=== PATIENT | male | born 1990 | race Two or more races ===

== ENCOUNTER 2024-07-04 21:17 | Emergency (ER) | payer SELFPAY ==
[2024-07-04 21:27] VITALS: BP 135/74
[2024-07-04 21:42] LABS: Hematocrit 43.5 % (39.0-52.0); Hemoglobin 14.9 g/dL (13.0-18.0); Mean Corp Hgb Conc. 34.3 g/dL (33.0-37.0); Mean Corpuscular Hgb 29.4 pg (27.0-31.0); Mean Platelet Volume 10.6 fL (7.4-10.4); Platelet Count 172 10^3/uL (130-400); Red Blood Cell Count 5.06 10^6/uL (4.70-6.10); Red Cell Dist. Width 13.1 % (11.5-14.5); White Blood Cell Count 5.5 10^3/uL (4.8-10.8)
[2024-07-04 22:00] LABS: ALT (SGPT) 46 U/L (0-50); AST (SGOT) 36 U/L (17-59); Albumin 4.4 g/dl (3.5-5.0); Alkaline Phosphatase 41 U/L (38-126); Blood Urea Nitrogen 20 mg/dl (9-20); Calcium 9.5 mg/dl (8.4-10.2); Carbon Dioxide 28 mmol/L (22-30); Chloride 102 mmol/L (98-107); Glucose 100 mg/dl (70-99); Potassium 4.5 mmol/L (3.5-5.1); Sodium 141 mmol/L (135-145); Total Bilirubin 0.4 mg/dl (0.2-1.3); eGFR > 60.00
[2024-07-04 22:48] VITALS: BMI 29.9
[2024-07-04 23:02] VITALS: BP 155/39
[2024-07-04 23:31] LABS: TSH Reflex To Free T4 2.22 uIU/ml (0.47-4.68)
--- NOTE | 2024-07-04 23:35 | ED.GENMED ---
History of Present Illness
General
Chief Complaint: Fatigue
Source: patient and records assistant (Language line - Ken[place] Creole)
Exam Limitations: none
Time Seen by Provider: 07/04/24 22:09
Nursing documentation reviewed up to this point in time: agreed with
History of Present Illness
History of Present Illness:
Patient to ED with complaint of fatigue. Symptoms started this AM. Denies fever/chill, recent illness. Brought self to ED for eval.
Past History
Past History
ED Past Medical History: None
ED Past Surgical History: None
Review of Systems
Review of Systems
Allergies reviewed?: Yes
All Other Systems: ROS reviewed and negative except as documented in HPI and ROS
Constitutional: Reports fatigue
EENT: Reports no symptoms
Respiratory: Reports no symptoms
Cardiac: Reports no symptoms
ABD/GI: Reports other (bloating after eating)
: Reports no symptoms
Musculoskeletal: Reports no symptoms
Skin: Reports no symptoms
Neurological: Reports no symptoms
Psychiatric: Reports no symptoms
Phy Exam
General Physical Exam
General Presentation: well appearing and no apparent distress
General age: appears stated age
General Skin: warm and dry
General Habitus: normal
General Mental: alert
General Hydration: appears well hydrated
Cardiovascular Exam
Cardiovascular Exam: regular rate/rhythm and no edema
Pulmonary Exam
Pulmonary Exam: lungs clear and no respiratory distress
Musculoskeletal Exam
Musculoskeletal Exam: full ROM and neuro vasc intact
Skin Exam
Skin Exam: normal color, warm/dry and no rash
Psychiatric Exam
Psychiatric Exam: normal mood/affect
Course
Orders/Labs/Results
Orders:
Orders
07/04/24 21:18
ECG [Electrocardiogram (*1)] Urgent
Reason for Study: Bradycardia / Tachycardia
EKG- Treatment ONCE
07/04/24 21:36
CMP [Comprehensive Metabolic Panel] Urgent
Complete Blood Count/No Diff Urgent
TSH Reflex To Free T4 Urgent
Comment: ADD ON
07/04/24 22:10
Add On- LAB Urgent
Tests Added?: TSH reflex free T4
Abnormal Lab Results
07/04/24
21:36
MPV 10.6 H fL
(7.4-10.4)
Glucose 100 H mg/dl
(70-99)
07/04/24 21:36
07/04/24 21:36
Vital Signs
Initial and Last Documented VS:
Initial Vital Signs
Temp Pulse Resp BP Pulse Ox
98.2 F 72 20 135/74 98
07/04/24 21:27 07/04/24 21:27 07/04/24 21:27 07/04/24 21:27 07/04/24 21:27
Last Documented Vital Signs
Temp Pulse Resp BP Pulse Ox
98.2 F 72 20 155/39 99
07/04/24 21:27 07/04/24 21:27 07/04/24 21:27 07/04/24 23:02 07/04/24 23:15
*Critical Care Note
Total Time (30-74mins, 75-104mins- exclusive of procedures): Not Applicable
Update Note
Update Note:
Patient to ED with compaint of fatigue. No findings on exam to explain his complaint. He then reports boating after eating. NO vomiting, no abdominal pain. ongoing for the past month. I explained that his exam is normal and there were no
concerning findings on his physical exam and labs. Recommended that he follow up at the clinic and he is agreeable. He then reported (laughing) that he is unable to get an erection. (no urinary issues). He is discharged home and will follow up
with the clinic.
ED Attending Note
-
Portions of this chart may have been created with voice recognition software.� Occasional wrong word or��sound alike� substitutions may have occurred due to the inherent limitations of voice recognition software.
Discharge Plan
Departure
Patient Disposition: Home (Routine Discharge)
Date of Disposition: 07/04/24
Time of Disposition: 23:33
Patient with high blood pressure during this ER visit?: No
Condition: Good
Covid-19: Not Applicable
Discharge Problem:
Fatigue
Instructions: Fatigue
Referrals:
[facility] [Outside] - Call in 1-3 days for appt
NONE,* [Family Provider] -
Interventions
Interventions:
*Risk Screen - Suicide Last Done: 07/04/24 21:27
*General Assessment Last Done: 07/04/24 22:43
*Neglect/Abuse Screening Last Done: 07/04/24 21:27
ED- Fall Risk Assessment Last Done: 07/04/24 22:43
*ED COVID-19 Vaccine History Last Done: 07/04/24 22:43
ED- Cardiac Assessment Last Done: 07/04/24 22:43
ED- Pulmonary Assessment Last Done: 07/04/24 22:43
Discharge Date and Time
Print Language: JAPANESE
== END 2024-07-04 23:48 | disposition home or self-care (01) ==
LOC: EMR 21:17
PROVIDERS: Emergency Medicine; EMERGENCY PHYSICIAN Emergency Medicine
DX: R53.83 Other fatigue (principal)
CPT/HCPCS: 99284; 80053; 84443; 85027; 93005